=== PATIENT | female | born 1975 | race Caucasian/White ===

== ENCOUNTER 2019-06-29 13:08 | Emergency (ER) | payer SELFPAY ==
--- NOTE | 2019-06-29 13:37 | RAD ---
2 view chest: 06/29/2019 HISTORY: Dizziness and blurred vision FINDINGS: No comparison imaging available. Lungs are clear. Heart and mediastinal contours are unrema rkable. IMPRESSION: No acute findings.
[2019-06-29 14:29] LABS: #Eosinphils 0.1 thou/uL (0.0-0.7); #Lymphocytes 2.8 thou/uL (1.20-3.40); #Monocytes 0.7 thou/uL (0.11-0.59); %Basophils 0.3 % (0.0-1.0); %Eosinophils 0.6 % (0.0-10.0); %Lymphocytes 26.4 % (21.0-51.0); %Monocytes 6.9 % (0.0-10.0); %Neutrophils 65.8 % (42.0-75.0); Hemoglobin 15.6 g/dL (12.0-16.0); Mean Corpuscular HGB CONC 34.1 g/dL (32.0-36.0); Mean Corpuscular Volume 90.9 fL (78.0-98.0); Mean Platelet Volume 8.8 fL (7.4-10.4); Platelet Count 240 thou/uL (130-400); RBC Distribution Width 12.2 % (11.5-14.5); Red Blood Cell (RBC) Count 5.03 mill/uL (4.20-5.40); White Blood Cell (WBC) Count 10.7 thou/uL (4.8-10.8)
[2019-06-29 14:57] LABS: ALT (SGPT) 20 U/L (8-55); AST (SGOT) 19 U/L (5-34); Albumin 4.5 g/dL (3.5-5.0); Alkaline Phosphatase 75 U/L (40-150); Anion Gap 12 mmol/L (10-20); BUN (Urea Nitrogen) 12 mg/dL (7.0-18.7); Bilirubin, Total 0.3 mg/dL (0.2-1.2); Calc. Creatinine Clearance 0 mL/min (70-130); Carbon Dioxide 27 mmol/L (22-29); Chloride 103 mmol/L (98-107); Estimated GFR-MDRD 78; Globulin 2.8 g/dL (2.4-3.5); Glucose 105 mg/dL (70-105); Potassium 4.3 mmol/L (3.5-5.1); Protein, Total 7.3 g/dL (6.0-8.3); Sodium 138 mmol/L (136-145)
[2019-06-29 15:51] LABS: Bilirubin Negative (Negative); Blood, Urine Negative (Negative); Clarity Turbid (Clear); Glucose, Urine (Dipstick) Normal (Negative); Leukocyte 75 Leu/uL (Negative); Nitrite 2+ (Negative); Protein, Urine (Dipstick) Negative (Neg-Trace); Urobilinogen Normal mg/dL (Less than 2)
[2019-06-29 15:54] LABS: Bacteria/HPF 1+ HPF (None Seen)
[2019-06-29] MEDS ORDERED: Meclizine HCl 25 MG TAB ONE ×2 (16:03→16:04)
--- NOTE | 2019-06-29 16:08 | CT ---
CT BRAIN WITHOUT CONTRAST: 06/29/19 HISTORY: Dizziness. FINDINGS: No evidence of infarct, hemorrhage, midline shift, or abnormal extra-axial fluid collections seen. Th e ventricular size is normal and the basilar cisterns patent. The bony calvarium is intact. The visua lized paranasal sinuses and mastoid air cells are well aerated. IMPRESSION: No CT evidence of acute intracranial process. POS: OFF
== END 2019-06-29 16:59 | disposition home or self-care (01) ==
LOC: ERS 13:08
DX: R42 Dizziness and giddiness (principal); N30.00 Acute cystitis without hematuria; F17.210 Nicotine dependence, cigarettes, uncomplicated
CPT/HCPCS: 36415; 70450; 71046; 80053; 81003; 81015; 83880; 84484; 85025; 93005; J8597

== ENCOUNTER 2023-11-10 20:40 | Inpatient (IN) | payer OTHER, SELFPAY ==
[2023-11-10 21:45] LABS: #Monocytes 0.9 thou/uL (0.11-0.59); #Neutrophils 7.7 thou/uL (1.40-6.50); %Basophils 0.2 % (0.0-1.0); %Eosinophils 0.3 % (0.0-10.0); %Monocytes 8.1 % (0.0-10.0); %Neutrophils 67.1 % (42.0-75.0); Hematocrit 44.8 % (36.0-47.0); Hemoglobin 15.2 g/dL (12.0-16.0); Mean Corpuscular HGB CONC 33.9 g/dL (32.0-36.0); Mean Corpuscular Hemoglobin 29.9 pg (27.0-31.0); Mean Platelet Volume 10.8 fL (7.4-10.4); Platelet Count 284 10x3/uL (130-400); RBC Distribution Width 13.4 % (11.5-14.5); Red Blood Cell (RBC) Count 5.09 mill/uL (4.20-5.40); White Blood Cell (WBC) Count 11.5 10x3/uL (4.8-10.8)
[2023-11-10 21:54] LABS: Bacteria/HPF None Seen HPF (None Seen); Bilirubin Negative (Negative); Blood, Urine Negative (Negative); CAUTI Indications for Culture Pelvic or flank pain; Clarity Clear (Clear); Glucose, Urine (Dipstick) Normal (Negative); Ketone, Urine Negative (Negative); Leukocyte 75 Leu/uL (Negative); Nitrite Negative (Negative); Protein, Urine (Dipstick) Negative (Neg-Trace); RBC/HPF 0-3 HPF (0-3); Squamous Epithelial 0-3 HPF (0-3); Urobilinogen Normal mg/dL (Less than 2); WBC/HPF 0-3 HPF (0-3)
[2023-11-10 21:56] LABS: Specific Gravity, Urine Greater than 1.060 (1.002-1.036)
[2023-11-10 21:57] LABS: Urine Culture Reflex No No
[2023-11-10 22:11] LABS: Albumin 4.1 g/dL (3.5-5.0); Anion Gap 13 mmol/L (10-20); Bilirubin, Total 1.1 mg/dL (0.2-1.2); Carbon Dioxide 24 mmol/L (22-29); Chloride 99 mmol/L (98-107); Globulin 3.3 g/dL (2.4-3.5); Glucose 108 mg/dL (70-105); Potassium 4.3 mmol/L (3.5-5.1); Protein, Total 7.4 g/dL (6.0-8.3); Sodium 132 mmol/L (136-145)
[2023-11-10 22:12] LABS: Alkaline Phosphatase 68 U/L (40-110)
[2023-11-10 22:13] LABS: Calc. Creatinine Clearance 0 mL/min (70-130); Estimated GFR 91
[2023-11-10 22:14] LABS: BUN (Urea Nitrogen) 12 mg/dL (7.0-18.7)
[2023-11-10 22:15] LABS: AST (SGOT) 42 U/L (5-34); Bilirubin, Direct 0.3 mg/dL (0.1-0.3); Magnesium 1.9 mg/dL (1.6-2.6)
[2023-11-10 22:16] LABS: ALT (SGPT) 25 U/L (8-55); Lipase 9 U/L (8-78)
[2023-11-10] MEDS ORDERED: Ondansetron ODT 4 MG TAB PO PRN (23:48)
[2023-11-10] MEDS ORDERED: Acetaminophen 325 MG TAB PO PRN (23:48)
[2023-11-10] MEDS ORDERED: Ondansetron PF 4 MG/2 ML Vial IVP PRN (23:48)
[2023-11-10] MEDS ORDERED: Acetaminophen 650 MG Suppository PR PRN (23:48)
[2023-11-10] MEDS ORDERED: Morphine 4 MG/ML VIAL SLOW IVP PRN (23:52)
[2023-11-11] MEDS ORDERED: Piperacillin/Tazobactam 3.375 GM in Sodium Chloride 0.9% 100 ML IVPB SCH (00:30)
[2023-11-11 01:15] VITALS: BMI 33.8
[2023-11-11] MEDS: Sodium Chloride 0.9% 1,000 ML IV SCH ×4 (01:35→21:14)
[2023-11-11] MEDS ORDERED: Pantoprazole 40 MG VIAL IVP SCH ×2 (03:00→21:00)
[2023-11-11] MEDS: Piperacillin/Tazobactam 3.375 GM in Sodium Chloride 0.9% 100 ML IVPB SCH ×3 (05:02→21:13)
[2023-11-11 06:36] LABS: #Eosinphils 0.1 thou/uL (0.0-0.7); #Monocytes 0.8 thou/uL (0.11-0.59); #Neutrophils 5.3 thou/uL (1.40-6.50); %Basophils 0.3 % (0.0-1.0); %Eosinophils 0.7 % (0.0-10.0); %Lymphocytes 33.7 % (21.0-51.0); %Monocytes 8.9 % (0.0-10.0); %Neutrophils 56.2 % (42.0-75.0); Hematocrit 42.3 % (36.0-47.0); Hemoglobin 13.8 g/dL (12.0-16.0); Mean Corpuscular HGB CONC 32.6 g/dL (32.0-36.0); Mean Corpuscular Hemoglobin 29.2 pg (27.0-31.0); Mean Corpuscular Volume 89.4 fl (78.0-98.0); Mean Platelet Volume 10.9 fL (7.4-10.4); Platelet Count 279 10x3/uL (130-400); RBC Distribution Width 13.5 % (11.5-14.5); Red Blood Cell (RBC) Count 4.73 mill/uL (4.20-5.40); White Blood Cell (WBC) Count 9.4 10x3/uL (4.8-10.8)
[2023-11-11 07:05] LABS: Anion Gap 14 mmol/L (10-20); BUN (Urea Nitrogen) 12 mg/dL (7.0-18.7); Calc. Creatinine Clearance 114 mL/min (70-130); Calcium 8.4 mg/dL (7.8-10.44); Carbon Dioxide 24 mmol/L (22-29); Chloride 104 mmol/L (98-107); Estimated GFR 88; Glucose 96 mg/dL (70-105); Potassium 3.6 mmol/L (3.5-5.1); Sodium 138 mmol/L (136-145)
[2023-11-11] MEDS ORDERED: Iopamidol 30 ML ONE (10:41)
[2023-11-11] MEDS ORDERED: Glucagon 1 MG/ML KIT ONE (10:41)
[2023-11-11] MEDS ORDERED: Indomethacin 50 MG SUPP ONE (10:42)
[2023-11-11] MEDS ORDERED: Dexamethasone 20 MG/5 ML VIAL ONE (11:01)
[2023-11-11] MEDS ORDERED: Rocuronium Bromide 10 MG/ML (10ML VIAL) ONE (11:01)
[2023-11-11] MEDS ORDERED: PROPOFOL 20 ML ONE (11:01)
[2023-11-11] MEDS ORDERED: Ondansetron PF 4 MG/2 ML Vial ONE ×2 (11:01→11:48)
[2023-11-11] MEDS ORDERED: fentaNYL PF 100 MCG/2 ML SYRINGE ONE (11:01)
[2023-11-11] MEDS ORDERED: SUCCINYLCHOLINE/SOD CL,ISO/PF 200 MG/10 ML SYRINGE FS ONE (11:01)
[2023-11-11] MEDS ORDERED: ePHEDrine Sulfate 50 MG/10 ML VIAL ONE (11:15)
[2023-11-11] MEDS ORDERED: PHENYLEPHRINE-NS 100 MCG/ML 10 ML SYRINGE ONE (11:17)
[2023-11-11] MEDS ORDERED: SUGAMMADEX SODIUM 200 MG/2 ML VIAL ONE (11:37)
[2023-11-11] MEDS ORDERED: Ketorolac Tromethamine 30 MG (1 mL) VIAL ONE (11:47)
[2023-11-12] MEDS: Piperacillin/Tazobactam 3.375 GM in Sodium Chloride 0.9% 100 ML IVPB SCH ×2 (05:36→13:01)
[2023-11-12] MEDS ORDERED: Iopamidol 30 ML ONE (07:28)
[2023-11-12] MEDS ORDERED: EPINEPHrine 1 MG/ML VIAL ONE (07:28)
[2023-11-12] MEDS ORDERED: Bupivacaine 0.25% HCL 30 ML VIAL ONE (07:28)
[2023-11-12] MEDS ORDERED: PROPOFOL 20 ML ONE (08:30)
[2023-11-12] MEDS ORDERED: fentaNYL 50 mcg/mL 1 mL Vial ONE (08:31)
[2023-11-12] MEDS ORDERED: Rocuronium Bromide 10 MG/ML (10ML VIAL) ONE (08:39)
[2023-11-12] MEDS ORDERED: Lidocaine 1% PF 5 ML VIAL ONE (08:39)
[2023-11-12] MEDS ORDERED: Ondansetron PF 4 MG/2 ML Vial ONE (08:39)
[2023-11-12] MEDS ORDERED: SUGAMMADEX SODIUM 200 MG/2 ML VIAL ONE (09:41)
[2023-11-12] MEDS ORDERED: Promethazine HCl 25 MG/ML VIAL IM PRN (10:03)
[2023-11-12] MEDS ORDERED: Ondansetron HCl/PF 4 MG/2 ML Vial IVP PRN (10:03)
[2023-11-12] MEDS ORDERED: HYDROcodone/Acetaminophen 7.5/325 mg Tablet PO PRN (10:08)
[2023-11-12] MEDS: Sodium Chloride 0.9% 1,000 ML IV SCH (11:42)
[2023-11-12 14:39] LABS: #Monocytes 0.6 thou/uL (0.11-0.59); #Neutrophils 8.6 thou/uL (1.40-6.50); %Basophils 0.3 % (0.0-1.0); %Eosinophils 0.1 % (0.0-10.0); %Lymphocytes 18.1 % (21.0-51.0); %Monocytes 5.3 % (0.0-10.0); Hematocrit 37.6 % (36.0-47.0); Hemoglobin 12.1 g/dL (12.0-16.0); Mean Corpuscular HGB CONC 32.2 g/dL (32.0-36.0); Mean Corpuscular Hemoglobin 29.9 pg (27.0-31.0); Mean Corpuscular Volume 92.8 fl (78.0-98.0); Mean Platelet Volume 10.9 fL (7.4-10.4); Platelet Count 243 10x3/uL (130-400); RBC Distribution Width 13.5 % (11.5-14.5); Red Blood Cell (RBC) Count 4.05 mill/uL (4.20-5.40); White Blood Cell (WBC) Count 11.3 10x3/uL (4.8-10.8)
[2023-11-12 15:14] LABS: ALT (SGPT) 49 U/L (8-55); AST (SGOT) 66 U/L (5-34); Albumin 3.3 g/dL (3.5-5.0); Alkaline Phosphatase 70 U/L (40-110); BUN (Urea Nitrogen) 16 mg/dL (7.0-18.7); Bilirubin, Total 0.4 mg/dL (0.2-1.2); Calc. Creatinine Clearance 120 mL/min (70-130); Calcium 7.6 mg/dL (7.8-10.44); Carbon Dioxide 18 mmol/L (22-29); Chloride 109 mmol/L (98-107); Estimated GFR 94; Globulin 2.3 g/dL (2.4-3.5); Glucose 100 mg/dL (70-105); Protein, Total 5.6 g/dL (6.0-8.3); Sodium 139 mmol/L (136-145)
[2023-11-12 16:06] LABS: Anion Gap 17 mmol/L (10-20)
[2023-11-12 20:42] VITALS: BP 112/80; TEMP 98.5
== END 2023-11-12 20:40 | disposition home or self-care (01) | DRG 854 ==
LOC: ERS 20:40 → T4-B 23:48
PROVIDERS: ADMIT Student in an Organized Health Care Education/Training Program; ATTEND Family Medicine
PROC: 3E03329 Introduction of Other Anti-infective into Peripheral Vein, Percutaneous Approach (ICD-10-PCS; principal; 2023-11-10)
PROC: 0DJ08ZZ Inspection of Upper Intestinal Tract, Via Natural or Artificial Opening Endoscopic (ICD-10-PCS; 2023-11-11)
PROC: 0FT44ZZ Resection of Gallbladder, Percutaneous Endoscopic Approach (ICD-10-PCS; 2023-11-12)
PROC: BF5C2Z0 Other Imaging of Hepatobiliary System, All using Fluorescing Agent, Intraoperative (ICD-10-PCS; 2023-11-12)
DX: A41.9 Sepsis, unspecified organism (principal); E87.1 Hypo-osmolality and hyponatremia; K80.00 Calculus of gallbladder with acute cholecystitis without obstruction; K21.9 Gastro-esophageal reflux disease without esophagitis; F15.10 Other stimulant abuse, uncomplicated; F17.210 Nicotine dependence, cigarettes, uncomplicated; F41.9 Anxiety disorder, unspecified; F32.A Depression, unspecified; K57.10 Diverticulosis of small intestine without perforation or abscess without bleeding
CPT/HCPCS: 36415; 47532; 74181; 76705; 80048; 80053; 81001; 82105; 82248; 83690; 83735; 85025; 88304; 93005; C1713; C9113; J0171; J1100; J1611; J1885; J2405; J2543; J2704; J3010; J3490; J7050; Q9967; S0020